=== PATIENT | female | born 1990 | race Hispanic/Latino ===

== ENCOUNTER 2016-09-30 16:07 | Emergency (ER) | payer MEDICAID, OTHER ==
[2016-09-30 16:49] VITALS: BMI 28.1
[2016-09-30 17:27] LABS: RBC URINE 3 /hpf (0-3); URINE BILIRUBIN NEGATIVE (NEGATIVE); URINE BLOOD NEGATIVE (NEGATIVE); URINE COLOR YELLOW (YELLOW); URINE GLUCOSE (UA) NEG (Normal); URINE KETONE NEGATIVE (NEGATIVE); URINE LEUKOCYTE ESTERASE NEG Leu/uL (Negative); URINE PROTEIN NEGATIVE (NEGATIVE); URINE UROBILINOGEN 0.2-1.0 mg/dL (0.2-1.0); WBC URINE 1 /hpf (0-5)
--- NOTE | 2016-09-30 18:08 | OBHP ---
Datetime: 09/30/2016 16:51 IP Adm Impression: , intrauterine ; No Active Labor; Intact Membranes IP Chief Complaint Other: abdominal cramps IP Admit Plan: Observation/Evaluation Admit Comment, IP Provider: 26 yo female at 26 weeks and 5 days GA, BRIAN 01/01/17 confirmed w ith first trimester US at 5 weeks GA as per pt presents to [facility] w/ complaints intermittent lower abdo mack cramps and groin pain for 2 days. denies VB, CTX, LOF. reports +FM. denies dysuria, fever,chill s, nausea, vomiting, headache, dizziness, chest pain or leg swelling. Denies any abdominal trauma. Pt is in transition of her obstertic care due to her insurance. last seen her Dr. Mir about a month ago and will transfer care to [facility]. past ob hx: has cervical cerclage placed on 08/17/16 for short cervix. SAB at 4-5 weeks GA in late 2015, 1 elective termination, x 01/09, at 36 weeks GA in 01/2012. past [employer] hx: denies past medical hx: denies past sx hx: , cerclage. social hx: denies smoking cigarettes, drinking alcohol or taking recreational drugs. allergies: NKDA assessment: 26 yo IUP at 26.5 weeks GA w/ abdominal cramp. plan: UA Case presented and discussed with on-call OB hospitalist Dr. Muñoz. Sultan Mcfarland, PGY 1 OB Hospitalist note: This pt was seen and examined by me. Agree with above note. RANULFO She has appt with [facility] for follow up sono next week. Extremities - PN: Normal Abdomen - PN: Normal Back - PN: Normal Lungs - PN: Normal Heart - PN: Normal Neurologic - PN: Normal HEENT - PN: Normal General - PN: Normal FHR - Baseline A Provider: 145 Membranes, Provider: Intact Contraction Comments Provider: none Comments, ACOG Physical Exam: Speculum exam: Closed cervical os, cerclage noted. ROS: General: no weakness; no fatigue HEENT: no BENNETT; no visual dist CV: no palpitations; no no CP GI: no N/V no diarhea No epigastric pain; non radiating : no F/U/D MS: No joint pain Vital Signs Provider: Reviewed IP Chief Complaint: Maternal discomfort NICHD Variability Prov Fetus A: Moderate 6-25bpm NICHD Accel Fetus A IP Provider: 10X10 FHR Category Provider Fetus A: Category I NICHD Decel Fetus A IP Provider: None Genitourinary Exam: Normal DTRs - PN: Normal
--- NOTE | 2016-09-30 18:09 | OBDCSUM ---
Datetime: 09/30/2016 17:52 Discharged to, Provider: Home Follow up at, Provider: Dr Montana/harshal Disch Instr Activity: Bedrest; May be up to bathroom; May be up for meals; May Shower Disch Instr Diet: Regular Discharge Instructions, Provider: Routine instructions given Discharge Diagnosis, Provider: False Labor - Undelivered Discharge Time: 09/30/2016 17:52 Follow up in weeks, Provider: 1-2w Disch Referrals: None Disch Activity Restrictions: No sexual activity; Nothing in vagina - Regent, tampons, douche Discharge Comment, Provider: UA Negative OB Hospitalist note: This pt was seen and examined by me. Agree with above note. RANULFO
== END 2016-09-30 17:52 | disposition home or self-care (01) ==
LOC: H.EROB2 16:07
DX: O47.02 False labor before 37 completed weeks of gestation, second trimester (principal); O26.872 Cervical shortening, second trimester; Z3A.26 26 weeks gestation of pregnancy

== ENCOUNTER 2016-11-15 15:19 | Emergency (ER) | payer MEDICAID, OTHER ==
[2016-11-15 16:33] VITALS: BMI 32.3
[2016-11-15] MEDS: Lactated Ringer's 2,000 ML IV SCH ×2 (16:50→17:50)
[2016-11-15 17:04] LABS: RBC URINE 3 /hpf (0-3); URINE BACTERIA RARE (<OCC); URINE BILIRUBIN NEGATIVE (NEGATIVE); URINE BLOOD NEGATIVE (NEGATIVE); URINE COLOR YELLOW (YELLOW); URINE GLUCOSE (UA) NEG (Normal); URINE KETONE NEGATIVE (NEGATIVE); URINE LEUKOCYTE ESTERASE LARGE Leu/uL (Negative); URINE PROTEIN NEGATIVE (NEGATIVE); URINE UROBILINOGEN 0.2-1.0 mg/dL (0.2-1.0); WBC CLUMPS MANY /hpf; WBC URINE 22 /hpf (0-5)
--- NOTE | 2016-11-15 17:28 | OBHP ---
Datetime: 11/15/2016 17:21 IP Adm Impression: , intrauterine ; No Active Labor IP Admit Plan: Discharge home Admit Comment, IP Provider: Patient presents to labor delivery at 33 weeks estimated date 12/31/2016 estimated gestational age 33 weeks. Patient presents to labor and delivery complaining of pelvic pre ssure and discomfort. Patient denies any vaginal bleeding or leakage of fluid she reports good movement. care significant for prophylactic cerclage secondary to funneling noted on sonogra m. Past medical history none Past surgical history previous section Medications vitamins Social history denies alcohol tobacco use Review of systems patient denies headache chest pain shortness of breath palpitations nausea vomit ing diarrhea or vaginal bleeding dysuria. Cold intolerance she is reasonably musculoskeletal or neuro logical complaints Vital signs stable afebrile Physical exam see notes Intrauterine at 33 weeks pelvic pressure discomfort IV fluid hydration External monitor Urine analysis Observation Pelvic Type - PN: Adequate Extremities - PN: Normal Abdomen - PN: Normal Back - PN: Normal Breast - PN: Not Done Lungs - PN: Normal Heart - PN: Normal Thyroid - PN: Normal Neurologic - PN: Normal HEENT - PN: Normal General - PN: Normal Presentation-Admit: Vertex FHR - Baseline A Provider: 145 Gestation - Est Wks by US: 33.0 EGA AdmitDate IP: 33.3 Vital Signs Provider: Reviewed IP Chief Complaint: Uterine contractions NICHD Variability Prov Fetus A: Moderate 6-25bpm NICHD Accel Fetus A IP Provider: 15X15 FHR Category Provider Fetus A: Category I NICHD Decel Fetus A IP Provider: None Dilatation, Provider: 0 Effacement, Provider: 0 Station, Provider: -2 Genitourinary Exam: Normal DTRs - PN: Normal
[2016-11-15] MEDS ORDERED: Betamethasone Soluspan 30 mg/5mL Inj Susp IM ONE (17:43)
[2016-11-16 17:23] VITALS: BP 115/63; PULSE 74; RESP 20; TEMP 98.1; O2SAT 98
== END 2016-11-15 18:50 | disposition home or self-care (01) ==
LOC: H.EROB2 15:19
DX: O47.03 False labor before 37 completed weeks of gestation, third trimester (principal); Z3A.33 33 weeks gestation of pregnancy
CPT/HCPCS: 81003; 96360; 96372; 99283; J0702; J7120

== ENCOUNTER 2016-11-16 17:33 | Emergency (ER) | payer OTHER ==
[2016-11-15 16:33] VITALS: BMI 32.3
--- NOTE | 2016-11-16 18:04 | OBHP ---
Datetime: 11/16/2016 17:55 IP Adm Impression: , intrauterine IP Admit Plan: Observation/Evaluation; Discharge home Admit Comment, IP Provider: Patient is a 5e 2021 at 33.4 weeks gestation.. Patient presents to for betamethasone No. 2. She initially presented yesterday with complaints of pelvic pressure a nd discomfort. She was managed with IV fluid hydration and received 1 dose of betamethasone.. Patient denies pelvic pressure, abdominal discomfort, ctxs, vaginal bleeding or leakage of fluid she reports good movement. care significant for prophylactic cerclage secondary to funneling note d on sonogram. Past medical history none Past surgical history previous section Past obstetrical history: 1; spontaneous AB complete; EAB 1 at 8 weeks Medications vitamins; macrobid Social history denies alcohol tobacco use Review of systems patient denies fever, headache chest pain shortness of breath palpitations nause a vomiting diarrhea or vaginal bleeding dysuria. I: Threatened premature labor History of cerclage with current P: For betamethasone No. 2 labor precautions Follow-up with Dr. Hernandez as advised Pelvic Type - PN: Not Done Extremities - PN: Not Done Abdomen - PN: Normal Back - PN: Normal Lungs - PN: Normal Heart - PN: Normal Neurologic - PN: Normal HEENT - PN: Normal General - PN: Normal FHR - Baseline A Provider: 120 Vital Signs Provider: Within Normal Limits NICHD Variability Prov Fetus A: Moderate 6-25bpm FHR Category Provider Fetus A: Category I NICHD Decel Fetus A IP Provider: None
[2016-11-16] MEDS ORDERED: Betamethasone Soluspan 30 mg/5mL Inj Susp IM ONE (18:05)
[2016-11-16 23:01] VITALS: BP 111/71; PULSE 91
== END 2016-11-16 18:38 | disposition home or self-care (01) ==
LOC: H.EROB2 17:33
DX: O47.03 False labor before 37 completed weeks of gestation, third trimester (principal); Z3A.33 33 weeks gestation of pregnancy; O26.93 Pregnancy related conditions, unspecified, third trimester; Z87.59 Personal history of other complications of pregnancy, childbirth and the puerperium
CPT/HCPCS: 96372; 99283; J0702

== ENCOUNTER 2016-11-28 09:48 | Emergency (ER) | payer OTHER ==
[2016-11-28 09:49] VITALS: BMI 32.3
--- NOTE | 2016-11-28 10:46 | ED PDOC ---
HPI: Chest Pain Time Seen by Provider: 11/28/16 10:13 Chief Complaint (Nursing): Chest Pain Chief Complaint (Provider): chest pain History Per: Patient History/Exam Limitations: no limitations Onset/Duration Of Symptoms: Days ( x 1) Additional Complaint(s): Keli Fowler is a 26 year old female, with a previous medical history of cervical cerclage, who is 35 weeks presenting to the ED with complaints of mid chest pressure that is worse with deep breaths associated with a cough and mild shortness of breath ongoing since yesterday. Patient denies any leg swelling, dizziness, abdominal pain or vaginal bleeding. OBGYN: Dr. Hernandez Past Medical History Reviewed: Historical Data, Nursing Documentation, Vital Signs Vital Signs: Last Vital Signs Temp 98.2 F 11/28/16 10:08 Pulse 100 H 11/28/16 15:31 Resp 20 11/28/16 10:08 BP 114/70 11/28/16 10:08 Pulse Ox 100 11/28/16 15:31 - Medical History PMH: No Chronic Diseases - Surgical History Surgical History: No Surg Hx - Family History Family History: States: Unknown Family Hx - Immunization History Hx Tetanus Toxoid Vaccination: No Hx Influenza Vaccination: No Hx Pneumococcal Vaccination: No - Home Medications Home Medications: Ambulatory Orders Medication Instructions Recorded Azithromycin [Zithromax] 250 mg PO DAILY #6 cap 01/27/14 Methylprednisolone [Medrol Dose 4 mg PO DAILY #21 mg 01/27/14 Pack (21 tabs)] Albuterol HFA [Ventolin HFA 90 2 puff IH Q4H PRN #1 bottle 11/28/16 mcg/actuation (8 g)] - Allergies Allergies/Adverse Reactions: Allergies Allergy/AdvReac Type Severity Reaction Status Date / Time No Known Allergies Allergy Unverified 01/27/14 14:24 Review of Systems ROS Statement: Except As Marked, All Systems Reviewed And Found Negative Cardiovascular: Positive for: Chest Pain Respiratory: Positive for: Cough, Shortness of Breath Gastrointestinal: Negative for: Abdominal Pain Genitourinary Female: Negative for: Vaginal Bleeding Musculoskeletal: Negative for: Other (leg swelling ) Physical Exam - Reviewed Nursing Documentation Reviewed: Yes Vital Signs Reviewed: Yes - Physical Exam Appears: Positive for: Well, Non-toxic, No Acute Distress Head Exam: Positive for: ATRAUMATIC, NORMAL INSPECTION, NORMOCEPHALIC Skin: Positive for: Normal Color, Warm, Dry Eye Exam: Positive for: EOMI, Normal appearance, PERRL ENT: Positive for: Normal ENT Inspection Neck: Positive for: Normal, Painless ROM Cardiovascular/Chest: Positive for: Regular Rate, Rhythm Respiratory: Positive for: CNT, Normal Breath Sounds Gastrointestinal/Abdominal: Positive for: Normal Exam, Bowel Sounds, Soft ( gravid). Negative for: Tenderness Back: Positive for: Normal Inspection Extremity: Positive for: Normal ROM Neurologic/Psych: Positive for: Alert, Oriented - Laboratory Results Result Diagrams: 11/28/16 11:11 11/28/16 10:34 - ECG ECG Rhythm: Positive for: Normal ST Segment, Sinus Rhythm. Negative for: ST/T Changes Rate: 100 (bpm) O2 Sat by Pulse Oximetry: 100 (RA) Pulse Ox Interpretation: Normal Medical Decision Making Medical Decision Making: Initial Impression: chest pain with differentials including ACS and pulmonary embolism Initial Plan: * EKG * labs * Troponin I * D-dimer * PTT * PT * compliance monitor cont * reevaluation Time: 12:21 --Secondary to D-dimer elevation, CT Angio was ordered 15:23 CT chest angio FINDINGS: PULMONARY ARTERIES: Unremarkable. No pulmonary embolism. A few shotty lymph nodes are identified bifurcations of the central pulmonary arteries bilaterally. No intraluminal filling defect is appreciate though suggest pulmonary embolus at this time however. AORTA: No acute findings. No thoracic aortic aneurysm. LUNGS: Limited ground-glass opacity is nonspecific and left greater than right lower lobes. Trace bilateral basilar dependent atelectasis is noted There is 6 mm noncalcified nodule identified at the right lower lobe image 64 series 6 which is likely benign. Follow-up chest CT in 12 months is recommended to demonstrate stability of this finding or resolution. PLEURAL SPACES: Unremarkable. No effusion or pneuomothorax. HEART: Unremarkable. No cardiomegaly. No significant pericardial effusion. LYMPH NODES: No lymphadenopathy. BONES, CHEST WALL: Unremarkable. No fracture or destructive lesion OTHER FINDINGS: Unremarkable. IMPRESSION: No CT evidence to suggest pulmonary embolus at this time. 6 mm nodule is seen the right lower lobe for which follow-up chest CT is advised in 12 months to demonstrate stability of this finding. Nonspecific ground-glass opacity is minimally seen at the bilateral lower lobes , left greater than right. Scribe Attestation: Documented by Wandy Worthington acting as a scribe for Brent Mayorga MD. MD Johnsonibjuan Attestation: All medical record entries made by the Scribe were at my direction and personally dictated by me. I have reviewed the chart and agree that the record accurately reflects my personal performance of the history, physical exam, medical decision making, and the department course for this patient. I have also personally directed, reviewed, and agree with the discharge instructions and disposition. Discharge Instructions: Re-evaluation. Patient feels better. Discussed results and plan with patient who expresses understanding. Counseling was provided regarding the diagnosis and prognosis. All questions answered and there is agreement with the plan to discharge home with instructions. Patient stable for discharge. Return if symptoms persist or worsen. Disposition - Clinical Impression Clinical Impression: Chest pain, Bronchitis - Patient ED Disposition Is Patient to be Admitted: No Doctor Will See Patient In The: Office Counseled Patient/Family Regarding: Studies Performed, Diagnosis, Need For Followup - Disposition Referrals: [facility] [Outside] Disposition: Routine/Home Disposition Time: 15:42 Condition: GOOD Additional Instructions: Follow up with your OBGYN today. Take medications as instructed. Return for worsening. Prescriptions: Albuterol HFA [Ventolin HFA 90 mcg/actuation (8 g)] 2 puff IH Q4H PRN #1 bottle PRN Reason: Cough Instructions: Chest Pain (ED), Acute Bronchitis (ED)
[2016-11-28 11:15] LABS: BASO % 0.3 % (0.0-2.0); EOS # 0.2 K/uL (0.0-0.7); EOS % 1.5 % (0.0-4.0); HEMATOCRIT 34.8 % (34.0-47.0); LYMPH # 1.1 K/uL (1.0-4.3); LYMPH % 6.5 % (20.0-40.0); MEAN CELL VOLUME 88.7 fl (81.0-99.0); MEAN CORPUSCULAR HEMOGLOBIN 29.9 pg (27.0-31.0); MEAN CORPUSCULAR HGB CONC 33.7 g/dL (33.0-37.0); MEAN PLATELET VOLUME 8.6 fl (7.2-11.7); MONO # 0.8 K/uL (0.0-0.8); MONO % 5.2 % (0.0-10.0); NEUT # 13.9 K/uL (1.8-7.0); NEUT % 86.5 % (50.0-75.0); PLATELET COUNT 260 K/uL (130-400); RED CELL DISTRIBUTION WIDTH 13.2 % (11.5-14.5); WHITE BLOOD COUNT 16.1 K/uL (4.8-10.8)
[2016-11-28 11:45] LABS: PARTIAL THROMBOPLASTIN TIME 27.1 Seconds (25.6-37.1)
[2016-11-28 12:31] LABS: EOSINOPHIL 2 % (0-7); NEUTROPHIL 83 % (42-75); TOTAL CELLS COUNTED 100
[2016-11-28 13:08] LABS: BLOOD UREA NITROGEN 5 mg/dl (7-17); CALCIUM 8.9 mg/dL (8.4-10.2); CARBON DIOXIDE 18 mmol/L (22-30); CHLORIDE 105 mmol/L (98-107); GFR AFRICAN-AMERICAN > 60; GLUCOSE,RANDOM 75 mg/dL (65-105); POTASSIUM 3.6 MMOL/L (3.6-5.0); SODIUM 137 mmol/l (132-148)
[2016-11-28] MEDS ORDERED: Iodixanol 320 MG/ML 100 ML BOTTLE IV ONE (13:50)
[2016-11-28] MEDS ORDERED: Sodium Chloride 0.9% 50 ML IV ONE (13:50)
--- NOTE | 2016-11-28 15:25 | CT ---
PROCEDURE: CT Chest with contrast (Pulmonary Angiogram) HISTORY: chest pain COMPARISON: None available. TECHNIQUE: Axial computed tomography images were obtained of the chest in the pulmonary arterial phase of enhancement. Coronal and sagittal reformatted images were created and reviewed. Intravenous contrast dose: Visipaque 320, 95 cc Radiation dose: Total exam DLP = 313.65 mGy-cm. This CT exam was performed using one or more of the following dose reduction techniques: Automated exposure control, adjustment of the mA and/or kV according to patient size, and/or use of iterative reconstruction technique. FINDINGS: PULMONARY ARTERIES: Unremarkable. No pulmonary embolism. A few shotty lymph nodes are identified bifurcations of the central pulmonary arteries bilaterally. No intraluminal filling defect is appreciate though suggest pulmonary embolus at this time however. AORTA: No acute findings. No thoracic aortic aneurysm. LUNGS: Limited ground-glass opacity is nonspecific and left greater than right lower lobes. Trace bilateral basilar dependent atelectasis is noted There is 6 mm noncalcified nodule identified at the right lower lobe image 64 series 6 which is likely benign. Follow-up chest CT in 12 months is recommended to demonstrate stability of this finding or resolution. PLEURAL SPACES: Unremarkable. No effusion or pneuomothorax. HEART: Unremarkable. No cardiomegaly. No significant pericardial effusion. LYMPH NODES: No lymphadenopathy. BONES, CHEST WALL: Unremarkable. No fracture or destructive lesion OTHER FINDINGS: Unremarkable. IMPRESSION: No CT evidence to suggest pulmonary embolus at this time. 6 mm nodule is seen the right lower lobe for which follow-up chest CT is advised in 12 months to demonstrate stability of this finding. Nonspecific ground-glass opacity is minimally seen at the bilateral lower lobes, left greater than right.
[2016-11-28 16:00] VITALS: RESP 19; O2SAT 98
[2016-11-28 22:20] VITALS: BP 113/73; PULSE 91; TEMP 98.2
--- NOTE | 2016-11-29 10:56 | CARD ---
APPROVED REPORT EKG Measurement Heart [id number] <Conclusion> Normal sinus rhythm Possible Left atrial enlargement Borderline ECG
== END 2016-11-28 17:16 | disposition home or self-care (01) ==
LOC: H.EROB2 09:48 → H.ER 09:48 → H.EROB 16:34 → H.EROB2 17:16
DX: O26.93 Pregnancy related conditions, unspecified, third trimester (principal); R07.9 Chest pain, unspecified; J40 Bronchitis, not specified as acute or chronic; Z3A.35 35 weeks gestation of pregnancy
CPT/HCPCS: 71275; 80048; 84484; 85025; 85378; 85610; 85730; 93005; 99283; Q9967

== ENCOUNTER 2016-12-01 11:10 | Observation (INO) | payer OTHER ==
[2016-12-04 12:27] VITALS: BMI 31.3
[2016-12-04] MEDS ORDERED: Lactated Ringer's 1,000 ML IV ONE (12:30)
[2016-12-04 13:27] LABS: HEMATOCRIT 34.5 % (34.0-47.0); MEAN CELL VOLUME 88.9 fl (81.0-99.0); MEAN CORPUSCULAR HEMOGLOBIN 29.7 pg (27.0-31.0); MEAN CORPUSCULAR HGB CONC 33.4 g/dL (33.0-37.0); RED CELL DISTRIBUTION WIDTH 13.4 % (11.5-14.5); WHITE BLOOD COUNT 12.1 K/uL (4.8-10.8)
--- NOTE | 2016-12-04 14:51 | OBHP ---
Datetime: 12/04/2016 14:39 IP Chief Complaint Other: cerclage removal IP Adm Impression Other: cerclage removal IP Admit Plan Other: cerclage removal, then discharge Admit Comment, IP Provider: Patient is a @ 36 wks with a rescue cerclage placed for short ce rclage and funneling seen after Level II. History of repeat x 1, previous x 1 contractions during this , history of depression and anxiety. No other antepartum issues. Shady nixon presents for cerclage removal. Patient desires for this . Patient denies medical problems, no other surgeries except C-secetion, no allergies, no medications except vitamins . VE=closed/50/-3 [id number] md jorge, +accels, no decels TOCO=irritability A/P 1. Patient to be observed on [facility], start IV, CBC/type and screen, CEFM and TOCO. 2. Patient consented for cerclage removal and repeat /. 3. WIll continue to observe patient after procedure. FHR is 150 mocerate variability, +accels, no decels, Cat -I. TOCO irritability. if no signs of labor, will discharge home Pelvic Type - PN: Adequate Extremities - PN: Normal Abdomen - PN: Normal Back - PN: Normal Breast - PN: Normal Lungs - PN: Normal Heart - PN: Normal Thyroid - PN: Normal Neurologic - PN: Normal HEENT - PN: Normal General - PN: Normal FHR - Baseline A Provider: 150 Contraction Comments Provider: Irritability Vital Signs Provider: Reviewed; Within Normal Limits NICHD Variability Prov Fetus A: Moderate 6-25bpm NICHD Accel Fetus A IP Provider: 15X15 NICHD Decel Fetus A IP Provider: None Dilatation, Provider: closed Effacement, Provider: 50 Station, Provider: high Genitourinary Exam: Normal DTRs - PN: Normal Datetime: 11/15/2016 17:21 EGA AdmitDate IP: 33.3
--- NOTE | 2016-12-04 15:55 | OBDCSUM ---
Datetime: 12/04/2016 15:34 Discharged to, Provider: Home Follow up at, Provider: Dr Hernandez Disch Instr Activity: Normal activity Disch Instr Diet: Regular Discharge Instructions, Provider: Routine instructions given Discharge Time: 12/04/2016 15:53 Follow up in weeks, Provider: 12/07/16 Disch Referrals: None Contraception discussed, Prov: Yes Discharge Comment, Provider: f/u on 12/06 in office Discharge Diagnosis Prov Other: cerclage removal
[2016-12-04 21:38] VITALS: BP 115/69; PULSE 76; RESP 20; O2SAT 98
== END 2016-12-04 16:00 | disposition home or self-care (01) ==
LOC: H.L&D 12-04 12:16
PROVIDERS: ADMIT Obstetrics & Gynecology; ATTEND Obstetrics & Gynecology
DX: O26.873 Cervical shortening, third trimester (principal); O34.211 Maternal care for low transverse scar from previous cesarean delivery; N85.8 Other specified noninflammatory disorders of uterus; Z3A.36 36 weeks gestation of pregnancy
CPT/HCPCS: 85027; 86850; 86900; G0378; J7120

== ENCOUNTER 2016-12-05 12:35 | Inpatient (IN) | payer OTHER ==
[2016-12-04 12:27] VITALS: BMI 31.3
[2016-12-05 14:35] LABS: BASO % 0.3 % (0.0-2.0); EOS # 0.2 K/uL (0.0-0.7); EOS % 1.5 % (0.0-4.0); HEMATOCRIT 36.4 % (34.0-47.0); LYMPH # 2.5 K/uL (1.0-4.3); LYMPH % 18.8 % (20.0-40.0); MEAN CORPUSCULAR HEMOGLOBIN 29.9 pg (27.0-31.0); MEAN CORPUSCULAR HGB CONC 33.6 g/dL (33.0-37.0); MEAN PLATELET VOLUME 8.6 fl (7.2-11.7); MONO # 1.1 K/uL (0.0-0.8); MONO % 8.4 % (0.0-10.0); NEUT # 9.4 K/uL (1.8-7.0); NRBC % 0.2 % (0.0-0.0); RED CELL DISTRIBUTION WIDTH 13.4 % (11.5-14.5); WHITE BLOOD COUNT 13.3 K/uL (4.8-10.8)
[2016-12-05 14:39] VITALS: TEMP 97.7
--- NOTE | 2016-12-05 14:41 | OBADHP ---
Datetime: 12/05/2016 13:50 Admit Comment, IP Provider: 26yo G [id number] IUP at 36w previous C/S x1 VABC x [address] Hernandez from the office for CTX pain. She had CTX since yesterday when cerclage removed. NoSROM. No VB. +FM PNC: CP Dr Dexter - chart rev'd - cerlcage placed and removed yesterday; given steroids POBGYNH: C/S x 1 LTCS 5cm; x 1. spont Ab x 1; TOPx1 No STD PMH: denies PSH: C/S NKA PSoH: adin smoking ETOH drugs A; IUP at 36w C/Sx 1 and VABC x 1 with CTX; early labor (PTL) PPLAN: Condition explained to pt...will admit to observe labor progress and manage pain. Pelvic Type - PN: Adequate Extremities - PN: Normal Abdomen - PN: Normal Back - PN: Normal Breast - PN: Not Done Lungs - PN: Normal Heart - PN: Normal Thyroid - PN: Normal Neurologic - PN: Normal HEENT - PN: Normal General - PN: Normal Presentation-Admit: Vertex Membranes, Provider: Intact Contraction Comments Provider: occ Comments, ACOG Physical Exam: ROS: General: no weakness; no fatigue HEENT: no BENNETT; no visual dist CV: no palpitations; no no CP GI: no N/V no diarhea : no F/U/D MS: No joint pain Pool Provider: Negative IP Hx Assessment: The History has been Reviewed and is Current IP Chief Complaint: Uterine contractions FHR Category Provider Fetus A: Category I NICHD Decel Fetus A IP Provider: None Dilatation, Provider: 2-3 Effacement, Provider: long Station, Provider: high Genitourinary Exam: Normal DTRs - PN: Normal EGA AdmitDate IP: 36.2 IP Adm Impression: , intrauterine ; No Active Labor; Intact Membranes IP Admit Plan: Admit to unit; Initiate labor protocol Datetime: 12/04/2016 14:39 IP Chief Complaint Other: cerclage removal IP Adm Impression Other: cerclage removal IP Admit Plan Other: cerclage removal, then discharge FHR - Baseline A Provider: 150 Vital Signs Provider: Reviewed; Within Normal Limits NICHD Variability Prov Fetus A: Moderate 6-25bpm NICHD Accel Fetus A IP Provider: 15X15 Datetime: 11/15/2016 17:21 Gestation - Est Wks by US: 33.0
[2016-12-05] MEDS ORDERED: Penicillin G 5 Million Unit Vial IVPB ONE (15:39)
[2016-12-05] MEDS ORDERED: Lactated Ringer's 1,000 ML IV SCH (16:30)
[2016-12-05] MEDS: Lactated Ringer's 500 ML IV SCH ×6 (16:30→23:30)
--- NOTE | 2016-12-05 17:16 | OBPN ---
Datetime: 12/05/2016 16:25 IP Progress Impression: Reassuring heart rate IP Informed Consent Obtain: Vaginal After ; Risks, Benefits and Alternatives Discussed IP Progress Plan: Continue present management; Anesthesia consult Pool Provider: Negative Membranes, Provider: Intact Contraction Comments Provider: 2-4m FHR - Baseline A Provider: 150 IP Progress Note Comment: Notified that after going to the bathroom/walking, she sat back in bed and a decel noticed down to 60's which recovered. Since then tracing improved. A: IUP at 36w previous C/S x 1 x 1 early labor painful CTX PLAN: discusion about condition and pain management. She understaods vs . She woul d like epidural NICHD Accel Fetus A IP Provider: 15X15 FHR Category Provider Fetus A: Category I NICHD Variability Prov Fetus A: Moderate 6-25bpm Dilatation, Provider: 3 Effacement, Provider: 50 Station, Provider: -2 Datetime: 12/05/2016 13:50 Presentation-Admit: Vertex NICHD Decel Fetus A IP Provider: None Datetime: 12/04/2016 14:39 Vital Signs Provider: Reviewed; Within Normal Limits Datetime: 11/15/2016 17:21 Gestation - Est Wks by US: 33.0
[2016-12-05] MEDS ORDERED: Bupivacaine HCl 0.25% PF (10 ml) Inj ONE (17:52)
[2016-12-05] MEDS ORDERED: Fentanyl/Bupivacaine HCl 250 ML EPI ONE (17:52)
--- NOTE | 2016-12-05 19:21 | OBPN ---
Datetime: 12/05/2016 19:00 IP Progress Impression: Reassuring heart rate IP Informed Consent Obtain: Vaginal After IP Procedures: Artificial ROM IP Progress Plan: Augmentation Pool Provider: Negative Membranes, Provider: Ruptured Amniotic Fluid Color, Provider: Clear Contraction Comments Provider: 3-5m FHR - Baseline A Provider: 135 Presentation-Admit: Vertex IP Progress Note Comment: Latent phase of labor PLAN: discussion with pt abotu augmentation - AROM clear Fluid NICHD Accel Fetus A IP Provider: 15X15 FHR Category Provider Fetus A: Category I NICHD Variability Prov Fetus A: Moderate 6-25bpm Dilatation, Provider: 3-4 Effacement, Provider: 75 Station, Provider: -2 NICHD Decel Fetus A IP Provider: None
--- NOTE | 2016-12-05 20:15 | OBPN ---
Datetime: 12/05/2016 20:10 IP Progress Impression: Reassuring heart rate IP Informed Consent Obtain: Vaginal After ; Risks, Benefits and Alternatives Discussed IP Progress Plan: Augmentation Pool Provider: Positive Membranes, Provider: Ruptured Amniotic Fluid Color, Provider: Clear Presentation-Admit: Vertex IP Progress Note Comment: She feels comfortable FH reactive PLAN discussion with pt about , labor progress...she understands and wants augmentation with P itocin...discussed nipple stim as well. Start Pitocin at 1miu/h Dilatation, Provider: 3-4 Effacement, Provider: 75 Station, Provider: -2
[2016-12-05] MEDS ORDERED: Lidocaine 1% Inj (20ml) ONE (21:51)
--- NOTE | 2016-12-06 00:51 | OBPN ---
Datetime: 12/06/2016 00:42 IP Progress Impression: Normal progression of labor; Reassuring heart rate IP Informed Consent Obtain: Vaginal After IP Progress Plan: Augmentation; Anticipate Vaginal Delivery Pool Provider: Positive Membranes, Provider: Ruptured Contraction Comments Provider: 2-5m FHR - Baseline A Provider: 135 IP Fetus A Comments: not recuurent decels - but good recovery IP Progress Note Comment: Occ variable decels noted; no recurrent. She feels some pressure in lower abd/some nausea SVE 9cm / 100 / 0 A; Active phase of labor / PTL at 36+w PLAN Piotcin left at 1miu/h - progressing well. Observe labor progress NICHD Accel Fetus A IP Provider: 15X15 NICHD Variability Prov Fetus A: Moderate 6-25bpm Dilatation, Provider: 9 Effacement, Provider: 100 Station, Provider: 0 NICHD Decel Fetus A IP Provider: Variable
[2016-12-06] MEDS ORDERED: Oxycodone/Acetaminophen 5/325 mg Tab PO PRN (02:58)
[2016-12-06] MEDS ORDERED: Benzocaine/Menthol SPRAY TOP PRN ×2 (02:58→03:44)
--- NOTE | 2016-12-06 03:02 | OBDS ---
MATERNAL INFORMATION Provider Comments: Over intact perineum, of live male infant from cephalic presentation. One l oose nuchal cord noted and reduced upon delivery. Infant was crying spontaneously, bulb suctioned an d placed on mother for [id number]. Placenta was deliveed intact spontanesouly. She remained stabl e EBL 200cc LABOR SUMMARY EDC: 01/01/2017 00:00 No. Babies in Womb: 1 MEMBRANES Membranes Rupture Method: Artificial Rupture of Membranes: 12/05/2016 19:00 Amniotic Fluid Color: Clear Amniotic Fluid Amount: Small Amniotic Fluid Odor: Normal VAGINAL DELIVERY Episiotomy: None Laceration Extension: First Degree Laceration Type: Perineal Other Laceration: right inner labial laceration Laceration Repair: Yes Laceration Repair Note: 1% Lidocaine infiltrated (3cc). Perineal and right inner labial laceration repaired with 2.0 Vicryl Rapdie suture Sponge Count Correct: Yes Sharps Count Correct: Yes Count Comment: one suture needle; one syringe; 5 lap pads IDENTIFICATION/MEDS BABY A ID Band Number: [id number]
[2016-12-06] MEDS ORDERED: Multivitamin With Minerals Tab PO SCH (09:00)
--- NOTE | 2016-12-06 09:47 | OBPPN ---
Datetime: 12/06/2016 09:43 PP Pain Prov: Within normal limits PP Nausea Prov: Denies PP Flatus Prov: Yes PP Breasts Prov: Not Done PP Heart Prov: Normal PP Lungs Prov: Normal PP Abdomen/Uterus Prov: Normal PP Lochia Prov: Not Done PP Vulva/Perineum Prov: Not Done PP CVA Tenderness Prov: Normal PP Extremities Prov: Normal PP Impression Prov: Normal progression PP Plan Prov: Continue present management PP Progress Note Prov: Patient doing well no complaints reports minimal lochia and tolerating diet a nd voiding without difficulty Vital signs stable afebrile Uterus firm below the umbilicus Extremities no Homans day #1 Ambulation, regular diet, analgesia as needed, anticipate discharge in a.m. Vital Signs Provider PP: Reviewed
[2016-12-06] MEDS: Multivitamin With Minerals Tab PO SCH (09:54)
[2016-12-06] MEDS: Oxycodone/Acetaminophen 5/325 mg Tab PO PRN ×2 (09:56→20:28)
[2016-12-07 06:52] LABS: BASO # 0.1 K/uL (0.0-0.2); BASO % 0.5 % (0.0-2.0); EOS # 0.5 K/uL (0.0-0.7); EOS % 4.7 % (0.0-4.0); HEMATOCRIT 33.9 % (34.0-47.0); LYMPH # 3.4 K/uL (1.0-4.3); LYMPH % 30.3 % (20.0-40.0); MEAN CELL VOLUME 88.5 fl (81.0-99.0); MEAN CORPUSCULAR HEMOGLOBIN 30.2 pg (27.0-31.0); MEAN CORPUSCULAR HGB CONC 34.2 g/dL (33.0-37.0); MEAN PLATELET VOLUME 8.5 fl (7.2-11.7); MONO # 1.2 K/uL (0.0-0.8); MONO % 10.7 % (0.0-10.0); NEUT % 53.8 % (50.0-75.0); NRBC % 0.1 % (0.0-0.0); RED CELL DISTRIBUTION WIDTH 13.3 % (11.5-14.5); WHITE BLOOD COUNT 11.1 K/uL (4.8-10.8)
[2016-12-07] MEDS: Multivitamin With Minerals Tab PO SCH (08:05)
[2016-12-07] MEDS ORDERED: Lansinoh for Breast Feeding Mothers TP ONE (10:15)
[2016-12-08 00:14] VITALS: BP 124/79; PULSE 62; RESP 18; O2SAT 100
== END 2016-12-07 19:40 | disposition home or self-care (01) | DRG 372 ==
LOC: H.EROB 12:35 → H.EROB2 12:35 → H.L&D 13:48 → H.OB/GYN 12-06 04:20
PROVIDERS: ADMIT Obstetrics & Gynecology; ATTEND Obstetrics & Gynecology
PROC: 10907ZC Drainage of Amniotic Fluid, Therapeutic from Products of Conception, Via Natural or Artificial Opening (ICD-10-PCS; 2016-12-05)
PROC: 4A1HXCZ Monitoring of Products of Conception, Cardiac Rate, External Approach (ICD-10-PCS; 2016-12-05)
PROC: 10E0XZZ Delivery of Products of Conception, External Approach (ICD-10-PCS; principal; 2016-12-06)
PROC: 0HQ9XZZ Repair Perineum Skin, External Approach (ICD-10-PCS; 2016-12-06)
DX: O60.14X0 Preterm labor third trimester with preterm delivery third trimester, not applicable or unspecified (principal); O69.81X0 Labor and delivery complicated by cord around neck, without compression, not applicable or unspecified; O70.0 First degree perineal laceration during delivery; O34.219 Maternal care for unspecified type scar from previous cesarean delivery; Z3A.36 36 weeks gestation of pregnancy; Z37.0 Single live birth